=== PATIENT | male | born 1985 | race Caucasian/White ===

== ENCOUNTER 2020-10-10 21:41 | Emergency (ER) | payer OTHER ==
[2020-10-11] MEDS ORDERED: LODINE CAP 300300 MG PO (01:17)
== END 2020-10-11 01:35 | disposition home or self-care (01) ==
LOC: ER1 21:41
DX: S63.91XA Sprain of unspecified part of right wrist and hand, initial encounter (principal); X50.0XXA Overexertion from strenuous movement or load, initial encounter
CPT/HCPCS: 73130; 99283